=== PATIENT | female | born 1955 | race Caucasian/White ===

== ENCOUNTER 2020-04-23 08:14 | Outpatient (REF) | payer MEDICARE, SELFPAY ==
[2020-04-23 12:11] LABS: Alanine Aminotransferase 15 U/L (0-31); Anion Gap 16 (12-20); Aspartate Amino Transferase 17 U/L (5-31); Blood Urea Nitrogen 12 mg/dL (9-16); Calcium 9.3 mg/dL (8.4-10.2); Carbon Dioxide 28 mmol/L (22-29); Chloride 103 mmol/L (96-108); Cholesterol 233 mg/dL; Estimated Glomerular Filt Rate > 60; Glucose Fasting 92 mg/dL (60-99); HDL Cholesterol 94 mg/dL; LDL Cholesterol Calculated 112 mg/dl; Potassium 4.7 mmol/l (3.3-5.1); Sodium 142 mmol/L (135-145); Triglycerides 136 mg/dL
== END 2020-04-23 08:15 | disposition home or self-care (01) ==
LOC: HO.HMGCLDS 08:14
PROVIDERS: PCP Internal Medicine; Visit Provider Internal Medicine
DX: M85.88 Other specified disorders of bone density and structure, other site (principal); Z00.01 Encounter for general adult medical examination with abnormal findings; Z78.0 Asymptomatic menopausal state; I10 Essential (primary) hypertension
CPT/HCPCS: 80048; 80061; 82306; 84450; 84460

== ENCOUNTER 2021-04-28 08:08 | Outpatient (REF) | payer MEDICARE, SELFPAY ==
[2021-04-28 11:24] LABS: MANUAL DIFF FLAG NO
[2021-04-28 11:47] LABS: Basophils Percent Auto 0.4 % (0-2); Eosinophils Absolute Auto 0.1 X10*3/uL (0.0-0.4); Eosinophils Percent Auto 2.9 % (0-4); Hematocrit 38.3 % (37.0-47.0); Hemoglobin 12.6 g/dl (12.0-16.0); Imm Gran Abs Auto 0.01 X10*3/uL (0.00-0.03); Imm Gran Pct Auto 0.2 % (0.0-0.4); Lymphocytes Absolute Auto 1.7 X10*3/uL (1.2-4.9); Lymphocytes Percent Auto 35.6 % (20-40); Mean Corpuscular HGB Conc 32.9 g/dl (31.0-35.0); Mean Corpuscular Hemoglobin 30.7 pg (27.0-33.0); Mean Corpuscular Volume 93.2 fL (80.0-98.0); Mean Platelet Volume 9.5 fL (9.4-12.3); Monocytes Absolute Auto 0.3 X10*3/uL (0.1-1.2); Monocytes Percent Auto 5.7 % (2-11); Neutrophils Absolute Auto 2.6 x10*3/uL (2.0-8.3); Neutrophils Percent Auto 55.2 % (45-73); Platelet Count 301 X10*3/uL (160-400); Red Blood Count 4.11 X10*6/uL (4.20-5.50); Red Cell Distribution Width 11.8 % (11.0-16.0); White Blood Count 4.8 X10*3/uL (4.8-10.8)
[2021-04-28 12:17] LABS: Vitamin D 25-OH Total 53.8 ng/mL (>30)
[2021-04-28 12:29] LABS: Alanine Aminotransferase 16 U/L (0-31); Anion Gap 13 (12-20); Aspartate Amino Transferase 16 U/L (5-31); Blood Urea Nitrogen 12 mg/dL (9-16); Calcium 9.2 mg/dL (8.4-10.2); Carbon Dioxide 27 mmol/L (22-29); Chloride 105 mmol/L (96-108); Cholesterol 227 mg/dL; Estimated Glomerular Filt Rate > 60; Glucose Fasting 94 mg/dL (60-99); HDL Cholesterol 91 mg/dL; LDL Cholesterol Calculated 110 mg/dl; Potassium 4.1 mmol/L (3.3-5.1); Sodium 141 mmol/L (135-145); Triglycerides 132 mg/dL
== END 2021-04-28 08:09 | disposition home or self-care (01) ==
LOC: HO.HMGCLDS 08:08
PROVIDERS: PCP Internal Medicine; Visit Provider Internal Medicine
DX: Z00.00 Encounter for general adult medical examination without abnormal findings (principal); M85.89 Other specified disorders of bone density and structure, multiple sites; I10 Essential (primary) hypertension; Z78.0 Asymptomatic menopausal state
CPT/HCPCS: 36415; 80048; 80061; 82306; 84450; 84460; 85025

== ENCOUNTER 2022-04-30 08:07 | Outpatient (REF) | payer MEDICARE, SELFPAY ==
[2022-04-30 12:05] LABS: Alanine Aminotransferase 14 U/L (0-31); Anion Gap 12 (12-20); Aspartate Amino Transferase 17 U/L (5-31); Blood Urea Nitrogen 11 mg/dL (9-16); Calcium 9.6 mg/dL (8.4-10.2); Carbon Dioxide 30 mmol/L (22-29); Chloride 106 mmol/L (96-108); Cholesterol 237 mg/dL; Estimated Glomerular Filt Rate > 60; Glucose Fasting 91 mg/dL (60-99); HDL Cholesterol 81 mg/dL; LDL Cholesterol Calculated 129 mg/dl; Potassium 4.3 mmol/L (3.3-5.1); Sodium 144 mmol/L (135-145); Triglycerides 136 mg/dL; Vitamin D 25-OH Total 61.4 ng/mL (>30)
== END 2022-04-30 08:08 | disposition home or self-care (01) ==
LOC: HO.HMGCLDS 08:07
PROVIDERS: PCP Internal Medicine; Visit Provider Internal Medicine
DX: M85.89 Other specified disorders of bone density and structure, multiple sites (principal); J30.9 Allergic rhinitis, unspecified; Z78.0 Asymptomatic menopausal state
CPT/HCPCS: 36415; 80048; 80061; 82306; 84450; 84460

== ENCOUNTER 2023-02-04 10:48 | Outpatient (AMB) | payer MEDICARE, SELFPAY ==
--- NOTE | 2023-02-04 11:01 | A.OFFPC_ITS ---
Vital Signs 02/04/23 11:04 Weight 157 lb BP 120/80 Blood Pressure Location Rt brachial Position Sitting Pulse 84 Pulse Source Pulse Oximeter Pulse Oximetry (%) 98 Oxygen Delivery Method Room Air Intake Visit Reasons: uti Intake Note: Patient here for possible UTI, burning when urinating, lower back ache, slight pain in lower abdomen which has been present for about 1 week. Allergies egg yolk Allergy (Intermediate, Verified 08/15/23 23:47) gi upset Milk Containing Products (Dairy) [Milk Containing Products] Allergy (Intermediate, Verified 08/15/23 23:47) gi upset/bloating codeine Adverse Reaction (Unknown, Verified 08/15/23 23:47) lightheaded Medication List - Last Reconciled 08/15/23 by Debora Garza MD ipratropium bromide 2 sprays intranasal BID-TID PRN 1 week Tobacco use date assessed: 02/04/23 Fall risk assessment: No Falls in past year Last assessed Fall Risk: 02/04/23 HPI uti HPI Details 68-year-old lady here today complaining of intermittent episodes of burning in her vaginal area after urination, denies any accompanying fever, chills, nausea, urinary frequency or urgency, has some slight discomfort in lower back. This has been present now for the last 1 week. [facility] Medical History Osteopenia of multiple sites Lactose intolerance Menopause Recurrent cold sores Atrophic vaginitis Immunization refused Allergic rhinitis Tubular adenoma of colon Surgical History History of tonsillectomy History of colonoscopy Family History Father Pulmonary fibrosis Rheumatoid arthritis Respiratory disease Mother Breast cancer Thyroid disorder Dyslipidemia Sister No problems noted. Son No problems noted. Social History Housing: House Alcohol intake: never Patient Tobacco Use Status: Never used Tobacco e-Cigarette/Vaping Use: Never Used Current occupational status: retired Cognitive needs: No Hearing needs: No Vision needs: Yes Questionnaire Thrive Questionnaire Date Thrive assessed: 04/29/22 TISHA-7 AMB Questionnaire TISHA-7 Date TISHA - 7 assessed: 04/29/22 Source: Developed by Drs. Toñito Alejandro, Genesis Morris, Isai Coffman and colleagues, with an educational fabiola from [employer]. Review of Systems Const Denies chills, Denies fatigue and Denies fever(s) ENT Reports no additional complaints Card Denies chest pain and Denies dyspnea Resp Denies dyspnea GI Denies melena, Denies bloating, Denies hematochezia, Denies change in bowel hab its and Denies heartburn Denies hematuria, Denies difficulty voiding, Denies urinary incontinence, Denies vaginal discharge and Reports vaginal dryness Musc Reports no additional complaints Neuro Reports no additional complaints Endo Denies fatigue Physical exam (Primary Care) Vital Signs: Last Vital Signs Pulse 84 02/04/23 11:04 BP 120/80 02/04/23 11:04 Pulse Ox 98 02/04/23 11:04 Oxygen Delivery Method Room Air 02/04/23 11:04 Tobacco/Smoking Status: Tobacco use Status Tobacco use date assessed 02/04/23 02/04/23 11:06 Patient Tobacco Use Status Never used Tobacco 02/04/23 11:06 e-Cigarette/Vaping Use Never Used 02/04/23 11:06 Thrive Assessment: Date of Thrive Assessment Date Thrive assessed 04/29/22 02/04/23 11:06 Const General: comfortable and no acute distress Nutritional Appearance: average body habitus Orientation/consciousness: patient oriented x3 GI Inspection: Yes normal to inspection Palpation (GI): Soft to palpation, nontender, no guarding and no masses Auscultation: normal bowel sounds Other: Dry vaginal mucosa with scant discharge, no lesions seen General: Yes no CVA tenderness External Female Exam: normal appearance of the urethra Speculum Exam - Vagina: vagina atrophic Back/Spine/Pelvis Back: no CVA tenderness Neuro General: patient oriented x3 Results AMB Urinalysis, Automated UA Leukoctes 0 Jeff/uL Last Edit by ALLIE Gould on 02/04/23 11:12 UA Nitrite Negative Last Edit by ALLIE Gould on 02/04/23 11:12 UA Urobilinogen 0.2 mg/dL Last Edit by ALLIE Gould on 02/04/23 11:12 UA Protein 0 mg/dL Last Edit by ALLIE Gould on 02/04/23 11:12 UA pH 8.0 Last Edit by Dominick Kenney [facility] on 02/04/23 11:12 UA Blood 0 Zack/uL Last Edit by Dominick Kenney [facility] on 02/04/23 11:12 UA Specific Lyons 1.015 Last Edit by Dominick Kenney [facility] on 02/04/23 11:12 UA Ketone Negative Last Edit by Dominick Kenney [facility] on 02/04/23 11:12 UA Bilirubin 0 mg/dL Last Edit by Dominick Kenney [facility] on 02/04/23 11:12 UA Glucose 0 mg/dL Last Edit by Dominick Kenney [facility] on 02/04/23 11:12 Results Reviewed Results Reviewed: Laboratory Last Values Urine pH (Auto) 8.0 02/04/23 11:10 Specific Lyons (Auto) 1.015 02/04/23 11:10 Urine Protein (Auto) 0 mg/dL 02/04/23 11:10 Glucose (UA)(Auto) 0 mg/dL 02/04/23 11:10 Urine Ketones (Auto) Negative 02/04/23 11:10 Urine Blood (Auto) 0 Zack/uL 02/04/23 11:10 Urine Nitrite (Auto) Negative 02/04/23 11:10 Urine Bilirubin (Auto) 0 mg/dL 02/04/23 11:10 Urine Urobilinogen (Auto) 0.2 mg/dL 02/04/23 11:10 Leukocyte Esterase (Auto) 0 Jeff/uL 02/04/23 11:10 Assessment and Plan Assessment & Plan (1) Acute vaginitis: Code(s): N76.0 - Acute vaginitis Plan: Urinalysis came back with unremarkable findings. Prescription sent for estradiol 0.01% cream, to apply to vaginal area 3 times a week for the 1st week and to decrease frequency to just twice a week thereafter. Return to clinic if no improvement of symptoms Orders: Orders 2 AMB Urinalysis Automated 02/04/23 Z13.9 - Encounter for screening, unspecified Medications: New estradiol 0.01%(0.1mg/gram) (Estrace) Apply to a vaginal area 3 times a week for the 1st week and then decrease frequency to twice a week afterwards 1 g vaginal 3XW 42.5 grams 0RF Coding Level of Care Code Est Pt Level 3 (73112) Diagnoses Acute vaginitis N76.0
[2023-02-04 11:04] VITALS: BP 120/80; PULSE 84; O2SAT 98
== END 2023-02-04 12:06 | disposition home or self-care (01) ==
PROVIDERS: PCP Internal Medicine; Visit Provider Internal Medicine
DX: N76.0 Acute vaginitis (principal)
CPT/HCPCS: 81003; 99213

== ENCOUNTER 2023-05-10 10:50 | Outpatient (AMB) | payer MEDICARE, SELFPAY ==
--- NOTE | 2023-05-10 11:50 | A.OFFPC_ITS ---
Vital Signs 05/10/23 11:51 Height 5 ft 6 in Weight 158 lb BMI 25.5 BP 128/82 Blood Pressure Location Rt brachial Position Sitting Pulse 68 Pulse Source Pulse Oximeter Pulse Oximetry (%) 100 Oxygen Delivery Method Room Air Intake Visit Reasons: Annual PE Intake Note: pt is here for her Annual PE pt does not get flu vaccine did not have covid vaccine Allergies egg yolk Allergy (Intermediate, Verified 05/10/23 12:13) gi upset Milk Containing Products (Dairy) [Milk Containing Products] Allergy (Intermediate, Verified 05/10/23 12:13) gi upset/bloating codeine Adverse Reaction (Unknown, Verified 05/10/23 12:13) lightheaded Medication List - Last Reconciled 05/10/23 by Debora Garza MD calcium carbonate-vitamin D3 600 mg-20 mcg (800 unit) (Caltrate with Vitamin D3) 1 tab PO DAILY estradiol 0.01%(0.1mg/gram) (Estrace) 1 g vaginal 3XW glycerin-min oil-polycarbophil (Replens vaginal gel) ea vaginal in-[id number] 333-1.7 mg (Airborne (ascorbate sodium)) tabs PO Tobacco use date assessed: 05/10/23 Fall risk assessment: No Falls in past year Last assessed Fall Risk: 05/10/23 Dental Screening Dental Screen Date: 05/10/23 Did you have a dental visit in the last 12 months?: Yes Did you have a dental problem in the last 6 months where you did not have access to dental care?: No Was dental information given to patient?: Patient has dentist HPI Annual PE HPI Details 67-year-old lady here today for her phys ical exam. She has a a trough vaginitis currently on Estrace, which has been helping. She goes to [facility] for her pelvic and exam and cervical cancer screening as was for screening mammogram and bone density scan screening. She has osteopenia and multiple sites as noted on her bone density done in 2019. No history of fracture.. She does not want to get any vaccines. She is up-to-date with her screening colonoscopy done [place] [address] Mae, due for another repeat check in 2023 due to history of adenomatous polyps on previous colonoscopies done. [facility] Medical History (Updated 05/10/23 @ 12:28 by Debora Garza MD) Osteopenia of multiple sites Lactose intolerance Menopause Recurrent cold sores Atrophic vaginitis Immunization refused Allergic rhinitis Tubular adenoma of colon Surgical History History of tonsillectomy History of colonoscopy Family History Father Pulmonary fibrosis Rheumatoid arthritis Respiratory disease Mother Breast cancer Thyroid disorder Dyslipidemia Sister No problems noted. Son No problems noted. Social History Housing: House Alcohol intake: never Patient Tobacco Use Status: Never used Tobacco e-Cigarette/Vaping Use: Never Used Current occupational status: retired Cognitive needs: No Hearing needs: No Vision needs: Yes Female Reproductive History Menstrual Other: Goes to [facility] for her routine Pap pelvic exam, screening mammogram and bone density scan testing Questionnaire PHQ-9 Over the last 2 weeks, how often have you been bothered by any of the following problems? 1. Little interest or pleasure in doing things: not at all 2. Feeling down, depressed, or hopeless: not at all 3. Trouble falling or staying asleep, or sleeping too much: not at all 4. Feeling tired or having little energy: not at all 5. Poor appetite or overeating: not at all 6. Feeling bad about yourself - or that you are a failure or have let yourself or your family down: not at all 7. Trouble concentrating on things, such as reading the newspaper or watching television: not at all 8. Moving or speaking so slowly that other people could have noticed. Or the opposite - being so fidgety or restless that you have been moving around a lot more than usual: not at all 9. Thoughts that you would be better off or of hurting yourself in some way: not at all Total score: 0 Depression Screening Interpretation: Negative Depression Screening Done: Yes 91162 - PHQ-9 Billing: Yes Source: Developed by Drs. Toñito Alejandro, Genesis Morris, Isai Coffman and colleagues, with an educational fabiola from [employer]. Thrive Questionnaire Date Thrive assessed: 05/10/23 I am a: Patient What is your living situation today?: I have a steady place to live Within the past 12 months, did the food you bought not last and you didn't have the money to get more?: Never true Within the past 12 months, did you worry whether your food would run out before you got money to buy more?: Never true Do you have trouble paying for medicines?: No Do you have trouble getting transportation to medical appointments?: No Do you have trouble paying your heating and electricity bill?: No Do you have trouble taking care of your child, family member or friend?: No Do you have trouble with day-to-day activities such as bathing, preparing meals, shopping, managing finances, etc.?: No Are you currently unemployed and looking for a job?: No Are you interested in more education?: No Please select the resources that you would like help with: None AUDIT C Alcohol Use Questionnaire (AUDIT-C) 1. How often do you have a drink containing alcohol?: Never Total Score: 0 TISHA-7 AMB Questionnaire TISHA-7 Date TISHA - 7 assessed: 05/10/23 Feeling nervous, anxious, or on edge: 0 = Not at all Not being able to stop or control worryin = Not at all Worrying too much about different things: 0 = Not at all Trouble relaxin = Not at all Being so restless that it is hard to sit still: 0 = Not at all Becoming easily annoyed or irritable: 0 = Not at all Feeling afraid as if something awful might happen: 0 = Not at all Total TISHA-7 score (0-4 normal; 5-9 mild; 10-14 moderate; 15-21 severe): 0 Source: Developed by Drs. Toñito Alejandro, Genesis Morris, Isai Coffman and colleagues, with an educational fabiola from [employer]. TISHA-7 Assessment Billing TISHA-7 Assessment Tool: TISHA-7 Assessment 35830 Review of Systems Const Denies body aches, Denies fatigue, Denies fever(s), Denies headache(s) and Denies weakness Eyes Details: Sees [facility] Denies change in vision, Denies eye discharge and Denies itchy eyes ENT Reports Normal hearing present, Denies dizziness, Denies headache(s), Denies nasal congestion, Denies nasal discharge and Denies sore throat Card Denies chest pain, Denies lightheadedness, Denies palpitations and Denies dyspnea Resp Denies chest congestion, Denies cough, Denies dyspnea and Denies wheezing GI Denies abdominal pain, Denies change in bowel habits and Denies heartburn Details: Goes to [facility] for routine exam screening mammogram as well as blood CT scan testing Denies urinary frequency, Denies dysuria and Denies urinary urgency Musc Reports no additional complaints Skin/Breast Denies lesions and Denies rash Neuro Reports Normal hearing present, Denies dizziness, Denies headache(s), Denies Sensory deficit (Neuro) and Denies weakness Psych Reports no additional complaints Endo Denies fatigue, Denies polydipsia, Denies polyuria and Denies palpitations Godwin/Lymph Denies easy bruising Aller/Immun Denies itchy eyes, Denies seasonal rhinorrhea and Denies wheezing Physical exam (Primary Care) Vital Signs: Last Vital Signs Pulse 68 05/10/23 11:51 BP 128/82 05/10/23 11:51 Pulse Ox 100 05/10/23 11:51 Oxygen Delivery Method Room Air 05/10/23 11:51 BMI result Body Mass Index 25.5 Tobacco/Smoking Status: Tobacco use Status Tobacco use date assessed 05/10/23 05/10/23 11:55 Patient Tobacco Use Status Never used Tobacco 05/10/23 11:50 e-Cigarette/Vaping Use Never Used 05/10/23 11:50 Depression Screening Interpretation: Negative Thrive Assessment: Date of Thrive Assessment Date Thrive assessed 04/29/22 05/10/23 11:50 Advance Care Planning discussion: Exists, not on file Date of discussion: 05/10/23 Who was present: Patient Forms completed: Health Care Proxy Time spent: 1-15 minutes, not on file Actual minutes spent: 15 Const General: comfortable and no acute distress Nutritional Appearance: average body habitus Orientation/consciousness: patient oriented x3 HENMT Head: Yes normocephalic Ears: hearing grossly normal bilaterally, external ears normal, TM's normal bilaterally and EAC's normal General nose exam: Normal external nose present Face and sinus: Yes face symmetric Mouth: Normal oral and palatal mucosa present, oropharynx normal and moist mucous membranes Eyes General: appearance normal, both eyes and all related structures Neck Neck: Yes normal visual inspection, Yes full ROM, Yes no lymphadenopathy and Yes supple Thyroid: Thyroid normal Chest Chest palpation & inspection: normal inspection of the chest Breast/axilla palpation: normal palpation of the breasts Resp Effort & Inspection: normal respiratory effort and able to speak in complete sentences Auscultation: clear to auscultation bilaterally Cardio Rate: regular rate Rhythm: regular rhythm Heart sounds: S1 normal heart sound present and S2 normal heart sound present Peripheral pulses: Peripheral pulses 2+ throughout GI Inspection: Yes normal to inspection Palpation (GI): Soft to palpation, nontender, no guarding and no masses Auscultation: normal bowel sounds General: Yes no CVA tenderness Back/Spine/Pelvis Back: no CVA tenderness and No back tenderness Skin General skin exam: no rashes or lesions noted Neuro General: patient oriented x3, gait normal, tone normal, moves all extremities, Normal light touch and pain sensation, no focal motor deficits and CN's II-XI intact bilaterally Cranial nerves: Yes Normal hearing present Gait exam (Neuro): Normal gait present Sensory Exam: No Sensory deficit (Neuro) Extrem General: Yes normal to inspection, Yes full ROM, Yes no joint enlargement, Yes no clubbing, cyanosis or edema and Yes normal gait Psych Appearance: grossly normal and well kempt Mental Status: mental status grossly normal Speech and movement: Normal speech and movement present Affect: normal affect Attitude: cooperative Thought process: Normal thought process present Thought content: Normal thought content present Assessment and Plan Assessment & Plan (1) Annual visit for general adult medical examination with abnormal findings: Code(s): Z00.01 - Encounter for general adult medical examination with abnormal findings Plan: Will check appropriate labs. Continue regular dental visit every 6 months and regular eye exams, at least every 2 years., goes to [facility] Take adequate calcium in diet and vitamin-D 3 at 2000 IU per cap once a day, in addition to weight-bearing exercises to help maintain good muscle tone and weight control. Instructed to do self-breast exam, and continue to get yearly mammogram, requested copy to be sent here from [facility], to include results of bone density scan and mammogram and Pap smear. Patient does not want to get any vaccinations. She is up-to-date with her screening colonoscopy due again in [address] Tu (2) Osteopenia of multiple sites: Comment: Seen on last bone density scan done 2019 at [facility] Code(s): M85.89 - Other specified disorders of bone density and structure, multiple sites Plan: Stressed importance of doing regular weight-bearing exercise, taking adequate calcium from dietary sources and taking vitamin-D 3 at least 2000 units daily. Patient states that she is scheduled to get a repeat bone density scan done at [facility], requested copy of findings (3) Atrophic vaginitis: Comment: Previously on Estrace given by her OBGYN at [place] but has been out of it now for the last several years Code(s): N95.2 - Postmenopausal atrophic vaginitis Plan: Currently on Estrace cream uses 2 to 3 times a week as needed Orders: Orders Aspartate Amino Transferase Today J30.9 - Allergic rhinitis, unspecified, M85.89 - Other specified disorders of bone density and structure, multiple sites, Z78.0 - Asymptomatic menopausal state Lipid Panel Today J30.9 - Allergic rhinitis, unspecified, M85.89 - Other specified disorders of bone density and structure, multiple sites, Z78.0 - Asymptomatic menopausal state Vitamin D 25-OH Total Today J30.9 - Allergic rhinitis, unspecified, M85.89 - Other specified disorders of bone density and structure, multiple sites, Z78.0 - Asymptomatic menopausal state Alanine Aminotransferase Today J30.9 - Allergic rhinitis, unspecified, M85.89 - Other specified disorders of bone density and structure, multiple sites, Z78.0 - Asymptomatic menopausal state Basic Metabolic Panel Fasting Today J30.9 - Allergic rhinitis, unspecified, M85.89 - Other specified disorders of bone density and structure, multiple sites, Z78.0 - Asymptomatic menopausal state Review Patient declined Pneumococcal Vaccine: 05/10/23 Flu Vaccine not done: patient reason (Decline) Declined TDap/Td: 05/10/23 Coding Level of Care Code Est Pt Prev Care >65y(56920) Diagnoses Annual visit for general adult medical examination with abnormal findings Z00.01 Osteopenia of multiple sites M85.89 Atrophic vaginitis N95.2 Additional Codes TISHA-7 Assessment Billing - TISHA-7 Assessment Tool: TISHA-7 Assessment 20460 ([id number]) Vital Signs *Quality* - Advance Care Planning discussion: Exists, not on file ( [id number]) Vital Signs *Quality* - Time spent: 1-15 minutes, not on file ([id number])
[2023-05-10 11:51] VITALS: BP 128/82; PULSE 68; O2SAT 100; BMI 25.5
== END 2023-05-10 12:30 | disposition home or self-care (01) ==
PROVIDERS: Visit Provider Internal Medicine
DX: Z00.00 Encounter for general adult medical examination without abnormal findings (principal); M85.89 Other specified disorders of bone density and structure, multiple sites; N95.2 Postmenopausal atrophic vaginitis
CPT/HCPCS: 1124F; 99397

== ENCOUNTER 2023-05-11 08:18 | Outpatient (REF) | payer MEDICARE, SELFPAY ==
[2023-05-11 11:50] LABS: Alanine Aminotransferase 15 U/L (0-31); Anion Gap 10 (12-20); Aspartate Amino Transferase 16 U/L (5-31); Blood Urea Nitrogen 12 mg/dL (9-16); Calcium 9.6 mg/dL (8.4-10.2); Carbon Dioxide 31 mmol/L (22-29); Chloride 104 mmol/L (96-108); Cholesterol 221 mg/dL (<200); Estimated Glomerular Filt Rate > 60; Glucose Fasting 94 mg/dL (60-99); HDL Cholesterol 90 mg/dL (>40); LDL Cholesterol Calculated 93 mg/dL (<100); Potassium 3.8 mmol/L (3.3-5.1); Sodium 141 mmol/L (135-145); Triglycerides 192 mg/dL (<150)
[2023-05-11 12:05] LABS: Vitamin D 25-OH Total 70.3 ng/mL (>30)
== END 2023-05-11 08:19 | disposition home or self-care (01) ==
LOC: HO.HMGCLDS 08:18
PROVIDERS: PCP Internal Medicine; Visit Provider Internal Medicine
DX: M85.89 Other specified disorders of bone density and structure, multiple sites (principal); J30.9 Allergic rhinitis, unspecified; Z78.0 Asymptomatic menopausal state
CPT/HCPCS: 36415; 80048; 80061; 82306; 84450; 84460

== ENCOUNTER 2023-07-28 09:33 | Outpatient (AMB) | payer MEDICARE, SELFPAY ==
--- NOTE | 2023-07-28 09:37 | MHC.OFFWIV ---
Intake Vital Signs 07/28/23 09:42 Height 5 ft 6 in Weight 160 lb BMI 25.8 BP 122/64 Blood Pressure Location Rt brachial Position Sitting Pulse 98 Pulse Source Pulse Oximeter Temp 97.5 F Temp Source Oral Pulse Oximetry (%) 100 Oxygen Delivery Method Room Air Intake Visit Reasons: EST/ear infection (lobby masked) Intake Note: Pt is here c/o right ear discomfort for one week and a half. Patient Tobacco Use Status: Never used Tobacco Allergies egg yolk Allergy (Intermediate, Verified 07/28/23 09:37) gi upset Milk Containing Products (Dairy) [Milk Containing Products] Allergy (Intermediate, Verified 07/28/23 09:37) gi upset/bloating codeine Adverse Reaction (Unknown, Verified 07/28/23 09:37) lightheaded Do you need a note to return to daycare/school/sports/work: No HPI HPI Comments History of Present Illness Details Patient is a 68yo F who presents to the office with possible R ear infection L side fullness 1 week ago which resolved Sates now fullness R ear, pain inside She said feels liquid in ear No drainage from the ear No fever or chills pain is 8/10 Tried decongestant with some relief She has some congestion, sinus pressure and post nasal drip Denies CP, SOB Minimal cough with phlegm PFSH Medical History Osteopenia of multiple sites Lactose intolerance Menopause Recurrent cold sores Atrophic vaginitis Immunization refused Allergic rhinitis Tubular adenoma of colon Surgical History History of tonsillectomy History of colonoscopy Family History Father Pulmonary fibrosis Rheumatoid arthritis Respiratory disease Mother Breast cancer Thyroid disorder Dyslipidemia Sister No problems noted. Son No problems noted. Social History Housing: House Alcohol intake: never Patient Tobacco Use Status: Never used Tobacco e-Cigarette/Vaping Use: Never Used Current occupational status: retired Cognitive needs: No Hearing needs: No Vision needs: Yes Review of Systems Const Denies body aches, Denies chills, Denies fatigue, Denies fever(s) and Denies headache(s) Eyes Denies blurry vision ENT Denies ear discharge, Reports otalgia, Denies facial pain, Denies headache(s), Reports nasal congestion, Reports nasal discharge, Reports sore throat and Denies throat swelling Card Denies chest pain and Denies dyspnea Resp Reports cough, Denies pain with cough and Denies dyspnea GI Denies abdominal pain Neuro Denies headache(s) Endo Denies fatigue Aller/Immun Denies throat swelling Physical Exam Vital Signs: Last Vital Signs Temp 97.5 F 07/28/23 09:42 Pulse 98 07/28/23 09:42 BP 122/64 07/28/23 09:42 Pulse Ox 100 07/28/23 09:42 Oxygen Delivery Method Room Air 07/28/23 09:42 BMI result Body Mass Index 25.8 General: Non-toxic, NAD. Speaking full sentences. Skin: Warm dry throughout. No R temporal swelling or erythema. No R sided scalp rash or vesicles. No R mastoid erythema Eye: EOMI, PERRL HENT: Airway patent. Uvula midline. No pharyngeal erythema or edema. No CIGAR HEAD PEGGER. Bilateral canals clear.+ fluid behind R TM. TM non-erythematous, non-bulging. No TM perforation or hemotympanum noted. No auricle or mastoid tenderness bilaterally. Lymph: No lymphadenopathy Respiratory: CTA bilaterally. No wheezes, rales or rhonchi Cardiac: RRR. No murmur MSK: Full ROM extremities. Neurology: A/O. No aphasia or facial droop. Gait without abnormality Psych: Good mood and affect Assessment & Plan Assessment & Plan (1) Otalgia of right ear: Code(s): H92.01 - Otalgia, right ear Plan: Nasal steroid as prescribed Tylenol prn discomfort Discussed new/worsening symptoms call Pt expressed verbal understanding and had no additional questions at this time Medications: New ipratropium bromide administer into each nostril 2 sprays intranasal BID-TID 1 week PRN 30 mL 0RF allergy symptoms Coding Level of Care Code Est Pt Level 3 (39089) Diagnoses Otalgia of right ear H92.01
[2023-07-28 09:42] VITALS: BP 122/64; PULSE 98; TEMP 36.4; O2SAT 100; BMI 25.8
== END 2023-07-28 10:11 | disposition home or self-care (01) ==
PROVIDERS: PCP Internal Medicine; Visit Provider Physician Assistant
DX: H92.01 Otalgia, right ear (principal)
CPT/HCPCS: 99213

== ENCOUNTER 2023-12-20 09:16 | Outpatient (AMB) | payer MEDICARE, SELFPAY ==
[2023-12-20 09:47] VITALS: BP 120/78; PULSE 90; TEMP 36.6; O2SAT 97; BMI 25.8
--- NOTE | 2023-12-20 09:47 | AM.OFFWIN_ITS ---
Intake Vital Signs 3 12/20/23 09:47 Height 5 ft 6 in Weight 72.631 kg BMI 25.8 BP 120/78 Blood Pressure Location Rt brachial Position Sitting Pulse 90 Pulse Source Pulse Oximeter Temp 97.9 F Temp Source Oral Pulse Oximetry (%) 97 Oxygen Delivery Method Room Air Intake Visit Reasons: EP rash on back/?shingles Intake Note: pt is here for rash on back, possible shingles Patient Tobacco Use Status: Never used Tobacco Allergies egg yolk Allergy (Intermediate, Verified 12/20/23 09:49) gi upset Milk Containing Products (Dairy) [Milk Containing Products] Allergy (Intermediate, Verified 12/20/23 09:49) gi upset/bloating codeine Adverse Reaction (Unknown, Verified 12/20/23 09:49) lightheaded Do you need a note to return to daycare/school/sports/work: No HPI EP rash on back/?shingles 2 HPI0 Details Patient presents with burning rash on right posterior trunk that began 1 week ago. She notes pain and itching in the area and then developed 2 areas of rash that are now improving. She has been applying hydrocortisone cream for the itch. She has experiencing no other prodromal type symptoms. She denies other rash on other areas of the body or any plant contact that may have caused dermatitis. She did have chickenpox as a child. FOR[facility]LY [facility] Medical History Osteopenia of multiple sites Lactose intolerance Menopause Recurrent cold sores Atrophic vaginitis Immunization refused Allergic rhinitis Tubular adenoma of colon Surgical History History of tonsillectomy History of colonoscopy Family History Father Pulmonary fibrosis Rheumatoid arthritis Respiratory disease Mother Breast cancer Thyroid disorder Dyslipidemia Sister No problems noted. Son No problems noted. Social History Housing: House Alcohol intake: never Patient Tobacco Use Status: Never used Tobacco e-Cigarette/Vaping Use: Never Used Current occupational status: retired Cognitive needs: No Hearing needs: No Vision needs: Yes Review of Systems Const Reports as per HPI and Reports no additional complaints Card Reports as per HPI and Reports no additional complaints Resp Reports as per HPI and Reports no additional complaints Musc Reports no additional complaints and Reports as per HPI Skin/Breast Denies lesions Neuro Reports no additional complaints and Reports as per HPI Physical Exam Vital Signs: Last Vital Signs Temp 97.9 F 12/20/23 09:47 Pulse 90 12/20/23 09:47 BP 120/78 12/20/23 09:47 Pulse Ox 97 12/20/23 09:47 Oxygen Delivery Method Room Air 12/20/23 09:47 BMI result Body Mass Index 25.8 Const General: cooperative, comfortable and no acute distress Orientation/consciousness: patient oriented x3 Resp Effort & Inspection: normal respiratory effort Auscultation: clear to auscultation bilaterally Cardio Rate: regular rate Rhythm: regular rhythm Heart sounds: S1 normal heart sound present and S2 normal heart sound present Skin General skin exam: elasticity normal and turgor normal Rashes: rashes noted right posterior truncal Full body images: 2 1. Area of dried vesicles on an erythematous base measuring 5 cm x 5 cm. 2. Area of dried vesicles on erythematous base measuring 5 cm x 5 cm 3. Left-side of spine area of red papular rash similar in size but without vesicles or dried over. Neuro General: patient oriented x3 Assessment & Plan Assessment & Plan (1) Dermatitis: Code(s): L30.9 - Dermatitis, unspecified Plan: Right-sided rashes are consistent with shingles. Since they have been present for a week and are now healing no treatment required. Patient can continue symptomatic treatment with hydrocortisone or OTC topical lidocaine as needed. The rash to the left of her spine somewhat atypical for shingles however explained to patient bilateral shingles is possible. She has not had a shingles vaccine however she is otherwise quite healthy without immunocompromised. Advised to avoid contact with immunocompromised and people until rash is fully healed. She does have a annual dermatology visit in the coming weeks. I have advised her to have them look at this as if further rash develops it is unlikely to be shingles and she may need more of a workup and evaluation by Dermatology. Return to clinic in the meantime if she has any concerns. Coding Level of Care Code Est Pt Level 3 (00563) Diagnoses Dermatitis L30.9
== END 2023-12-20 10:22 | disposition home or self-care (01) ==
PROVIDERS: PCP Internal Medicine; Visit Provider Physician Assistant
DX: L30.9 Dermatitis, unspecified (principal)
CPT/HCPCS: 99213

== ENCOUNTER 2024-05-29 10:48 | Outpatient (AMB) | payer MEDICARE, SELFPAY ==
[2024-05-29 11:55] VITALS: BP 132/74; PULSE 75; O2SAT 99; BMI 26.0
--- NOTE | 2024-05-29 11:55 | A.OFFPC_ITS ---
Vital Signs 05/29/24 11:55 Height 5 ft 6 in Weight 161 lb 4 oz BMI 26.0 BP 132/74 Blood Pressure Location Rt brachial Position Sitting Pulse 75 Pulse Source Pulse Oximeter Pulse Oximetry (%) 99 Oxygen Delivery Method Room Air Intake Visit Reasons: Annual PE Intake Note: Pt is here today for her Annual Physical. Last mammogram 05/18/23 Last colonoscopy 12/14/18 Haven't had a Bone Density Allergies egg yolk Allergy (Intermediate, Verified 05/29/24 12:34) gi upset Milk Containing Products (Dairy) [Milk Containing Products] Allergy (I ntermediate, Verified 05/29/24 12:34) gi upset/bloating codeine Adverse Reaction (Unknown, Verified 05/29/24 12:34) lightheaded Medication List - Last Reconciled 05/29/24 by Debora Garza MD No Known Home Meds Tobacco use date assessed: 05/29/24 Fall risk assessment: No Falls in past year Last assessed Fall Risk: 05/29/24 Dental Screening Dental Screen Date: 05/29/24 Did you have a dental visit in the last 12 months?: No Did you have a dental problem in the last 6 months where you did not have access to dental care?: No Was dental information given to patient?: Patient has dentist HPI Annual PE HPI Details - The patient is a 68 year old female pr esenting for an annual physical examination. - She has Osteopenia: Diagnosed in 2019, with bone thinning noted in the hip and lower back, more pronounced in the left hip. No history of fractures. Last bone density scan was in 2019. The patient plans to schedule a new bone density test. - Pre-cancerous tubular adenoma: Previou s colonoscopy in 2018 indicated a pre- cancerous lesion, with a recommendation for a repeat in 5 years. The patient is hesitant due to caregiving responsibilities for her with Parkinson's. Would like to get procedure postponed until next year - Hypertriglyceridemia: Triglycerides in creased from 136 mg/dL in 2020 to 172 mg/dL in the past year. The patient is aware of dietary influences. - Essential Hypertension: Blood pressure readings typically in the 120s. No changes in medication reported. -last mammogram was on 05/18/23 [facility] Medical History (Updated 05/29/24 @ 12:46 by Debora Garza MD) Hx of adenomatous polyp of colon Hypertriglyceridemia Osteopenia of multiple sites Lactose intolerance Menopause Recurrent cold sores Atrophic vaginitis Immunization refused Allergic rhinitis Tubular adenoma of colon Surgical History History of tonsillectomy History of colonoscopy Family History Father Pulmonary fibrosis Rheumatoid arthritis Respiratory disease Mother Breast cancer Thyroid disorder Dyslipidemia Sister No problems noted. Son No problems noted. Social History Housing: House Alcohol intake: never Patient Tobacco Use Status: Never used Tobacco e-Cigarette/Vaping Use: Never Used service: No Current occupational status: retired Cognitive needs: No Hearing needs: No Vision needs: Yes Questionnaire PHQ-9 Over the last 2 weeks, how often have you been bothered by any of the following problems? 1. Little interest or pleasure in doing things: not at all 2. Feeling down, depressed, or hopeless: not at all 3. Trouble falling or staying asleep, or sleeping too much: not at all 4. Feeling tired or having little energy: not at all 5. Poor appetite or overeating: not at all 6. Feeling bad about yourself - or that you are a failure or have let yourself or your family down: not at all 7. Trouble concentrating on things, such as reading the newspaper or watching television: not at all 8. Moving or speaking so slowly that other people could have noticed. Or the opposite - being so fidgety or restless that you have been moving around a lot more than usual: not at all 9. Thoughts that you would be better off or of hurting yourself in some way: not at all Total score: 0 Depression Screening Interpretation: Negative Depression Screening Done: Yes 40030 - PHQ-9 Billing: Yes Source: Developed by Drs. Toñito Alejandro, Genesis Morris, Isai Coffman and colleagues, with an educational fabiola from [employer]. Thrive Questionnaire Date Thrive assessed: 05/29/24 I am a: Patient What is your living situation today?: I have a steady place to live Within the past 12 months, did the food you bought not last and you didn't have the money to get more?: Never true Within the past 12 months, did you worry whether your food would run out before you got money to buy more?: Never true Do you have trouble paying for medicines?: No Do you have trouble getting transportation to medical appointments?: No Do you have trouble paying your heating and electricity bill?: No Do you have trouble taking care of your child, family member or friend?: No Do you have trouble with day-to-day activities such as bathing, preparing meals, shopping, managing finances, etc.?: No Are you currently unemployed and looking for a job?: No Are you interested in more education?: No Please select the resources that you would like help with: None Currently or been in a relationship where the following occur: No concerns reported THRIVE Score: 0 AUDIT C Alcohol Use Questionnaire (AUDIT-C) 1. How often do you have a drink containing alcohol?: Never 3. How often do you have six or more drinks on one occasion?: Never Total Score: 0 Score Reviewed/Action Taken: Yes TISHA-7 AMB Questionnaire TISHA-7 Date TISHA - 7 assessed: 05/29/24 Feeling nervous, anxious, or on edge: 0 = Not at all Not being able to stop or control worryin = Not at all Worrying too much about different things: 0 = Not at all Trouble relaxin = Not at all Being so restless that it is hard to sit still: 0 = Not at all Becoming easily annoyed or irritable: 0 = Not at all Feeling afraid as if something awful might happen: 0 = Not at all Total TISHA-7 score (0-4 normal; 5-9 mild; 10-14 moderate; 15-21 severe): 0 Source: Developed by Drs. Toñito Alejandro, Genesis Morris, Isai Coffman and colleagues, with an educational fabiola from [employer]. TISHA-7 Assessment Billing TISHA-7 Assessment Tool: TISHA-7 Assessment 63095 Review of Systems Const Reports as per HPI, Reports no additional complaints, Denies fatigue and Denies headache(s) Eyes Details: Sees [place] [facility] Denies change in vision, Denies eye discharge and Denies itchy eyes ENT Reports Normal hearing present, Denies dizziness, Denies headache(s), Denies nasal congestion, Denies nasal discharge and Denies sore throat Card Reports as per HPI, Reports no additional complaints and Denies palpitations Resp Reports as per HPI, Reports no additional complaints and Denies wheezing GI Denies abdominal pain, Denies change in bowel habits and Denies heartburn Details: Goes [facility] for routine exam screening mammogram as well as Dexa scan testing Denies urinary frequency, Denies dysuria and Denies urinary urgency Musc Reports no additional complaints and Reports as per HPI Skin/Breast Denies lesions Neuro Reports no additional complaints, Reports as per HPI, Reports Normal hearing present, Denies dizziness, Denies headache(s) and Denies Sensory deficit (Neuro) Psych Reports no additional complaints Endo Denies fatigue, Denies polydipsia, Denies polyuria and Denies palpitations Godwin/Lymph Denies easy bruising Aller/Immun Denies itchy eyes, Denies seasonal rhinorrhea and Denies wheezing Physical exam (Primary Care) Vital Signs: Last Vital Signs Pulse 75 05/29/24 11:55 BP 132/74 05/29/24 11:55 Pulse Ox 99 05/29/24 11:55 Oxygen Delivery Method Room Air 05/29/24 11:55 BMI result Body Mass Index 26.0 Tobacco/Smoking Status: Tobacco use Status Tobacco use date assessed 05/29/24 05/29/24 11:59 Patient Tobacco Use Status Never used Tobacco 05/29/24 11:57 e-Cigarette/Vaping Use Never Used 05/29/24 11:57 PHQ-9: PHQ-9 Score PHQ-9: Total score 0 05/29/24 12:52 Depression Screening Interpretation: Negative Thrive Assessment: Date of Thrive Assessment Date Thrive assessed 05/29/24 05/29/24 11:59 Currently or been in a relationship where the following occur: No concerns reported Const General: comfortable and no acute distress Nutritional Appearance: average body habitus Orientation/consciousness: patient oriented x3 HENMT Head: Yes normocephalic Ears: hearing grossly normal bilaterally, external ears normal, TM's normal bilaterally and EAC's normal General nose exam: Normal external nose present Face and sinus: Yes face symmetric Mouth: Normal oral and palatal mucosa present, oropharynx normal and moist mucous membranes Eyes General: appearance normal, both eyes and all related structures Neck Neck: Yes normal visual inspection, Yes full ROM, Yes no lymphadenopathy and Yes supple Thyroid: Thyroid normal Chest Chest palpation & inspection: normal inspection of the chest Breast/axilla palpation: normal palpation of the breasts Resp Effort & Inspection: normal respiratory effort and able to speak in complete sentences Auscultation: clear to auscultation bilaterally Cardio Rate: regular rate Rhythm: regular rhythm Heart sounds: S1 normal heart sound present and S2 normal heart sound present Peripheral pulses: Peripheral pulses 2+ throughout GI Inspection: Yes normal to inspection Palpation (GI): Soft to palpation, nontender, no guarding and no masses Auscultation: normal bowel sounds General: Yes no CVA tenderness Back/Spine/Pelvis Back: no CVA tenderness and No back tenderness Skin General skin exam: no rashes or lesions noted Neuro General: patient oriented x3, gait normal, tone normal, moves all extremities, Normal light touch and pain sensation, no focal motor deficits and CN's II-XI intact bilaterally Cranial nerves: Yes Normal hearing present Gait exam (Neuro): Normal gait present Sensory Exam: No Sensory deficit (Neuro) Extrem General: Yes normal to inspection, Yes full ROM, Yes no joint enlargement, Yes no clubbing, cyanosis or edema and Yes normal gait Psych Appearance: grossly normal and well kempt Mental Status: mental status grossly normal Speech and movement: Normal speech and movement present Affect: normal affect Attitude: cooperative Thought process: Normal thought process present Thought content: Normal thought content present Coding Level of Care Code Est Pt Prev Care >65y(08642) Diagnoses Annual visit for general adult medical examination with abnormal findings Osteopenia of multiple sites M85.89 Additional Codes TISHA-7 Assessment Billing - TISHA-7 Assessment Tool: TISHA-7 Assessment 28863 ([id number]) PHQ-9 - 38133 - PHQ-9 Billing: Yes ([id number]) Assessment & Plan Assessment & Plan (1) Annual visit for general adult medical examination with abnormal findings: Code(s): Z00. - Encounter for general adult medical examination with abnormal findings (2) Osteopenia of multiple sites: Comment: Seen on last bone density scan done 2019 at [place] Code(s): M85.89 - Other specified disorders of bone density and structure, multiple sites Category: Medical Plan -advised to call her OBGYN, to to schedule a bone density test together with screening mammogram done at [facility] - Plan to schedule a colonoscopy as soon as possible, but patient would like to wait until next year for procedure to be done. - Focus on healthy lifestyle choices to manage triglyceride levels. - Continue monitoring blood pressure regularly. - Consider scheduling vaccinations as discussed. - Maintain regular eye and dental check-ups. - Follow up for annual blood work and any other screenings as necessary. Patient was informed and verbally consented to the use of an ambient scribe for clinic note documentation during this visit. Orders: Orders Basic Metabolic Panel Fasting 06/01/24 E78.1 - Pure hyperglyceridemia, M85.89 - Other specified disorders of bone density and structure, multiple sites, Z00.01 - Encounter for general adult medical examination with abnormal findings, Z13.1 - Encounter for screening for diabetes mellitus, Z53.20 - Procedure and treatment not carried out because of patient's decision for unspecified reasons, Z78.0 - Asymptomatic menopausal state, Z86.0101 - Personal history of adenomatous and serrated colon polyps Aspartate Amino Transferase 06/01/24 E78.1 - Pure hyperglyceridemia, M85.89 - Other specified disorders of bone density and structure, multiple sites, Z00.01 - Encounter for general adult medical examination with abnormal findings, Z13.1 - Encounter for screening for diabetes mellitus, Z53.20 - Procedure and treatment not carried out because of patient's decision for unspecified reasons, Z78.0 - Asymptomatic menopausal state, Z86.0101 - Personal history of adenomatous and serrated colon polyps Vitamin D 25-OH Total 06/01/24 E78.1 - Pure hyperglyceridemia, M85.89 - Other specified disorders of bone density and structure, multiple sites, Z00.01 - Encounter for general adult medical examination with abnormal findings, Z13.1 - Encounter for screening for diabetes mellitus, Z53.20 - Procedure and treatment not carried out because of patient's decision for unspecified reasons, Z78.0 - Asymptomatic menopausal state, Z86.0101 - Personal history of adenomatous and serrated colon polyps Lipid Panel 06/01/24 E78.1 - Pure hyperglyceridemia, M85.89 - Other specified disorders of bone density and structure, multiple sites, Z00.01 - Encounter for general adult medical examination with abnormal findings, Z13.1 - Encounter for screening for diabetes mellitus, Z53.20 - Procedure and treatment not carried out because of patient's decision for unspecified reasons, Z78.0 - Asymptomatic menopausal state, Z86.0101 - Personal history of adenomatous and serrated colon polyps Complete Blood Count Auto Diff 06/01/24 E78.1 - Pure hyperglyceridemia, M85.89 - Other specified disorders of bone density and structure, multiple sites, Z00.01 - Encounter for general adult medical examination with abnormal findings, Z13.1 - Encounter for screening for diabetes mellitus, Z53.20 - Procedure and treatment not carried out because of patient's decision for unspecified reasons, Z78.0 - Asymptomatic menopausal state, Z86.0101 - Personal history of adenomatous and serrated colon polyps Alanine Aminotransferase 06/01/24 E78.1 - Pure hyperglyceridemia, M85.89 - Other specified disorders of bone density and structure, multiple sites, Z00.01 - Encounter for general adult medical examination with abnormal findings, Z13.1 - Encounter for screening for diabetes mellitus, Z53.20 - Procedure and treatment not carried out because of patient's decision for unspecified reasons, Z78.0 - Asymptomatic menopausal state, Z86.0101 - Personal history of adenomatous and serrated colon polyps
== END 2024-05-29 12:59 | disposition home or self-care (01) ==
PROVIDERS: PCP Internal Medicine; Visit Provider Internal Medicine
DX: Z00.01 Encounter for general adult medical examination with abnormal findings (principal); M85.89 Other specified disorders of bone density and structure, multiple sites

== ENCOUNTER → 2024-05-29 10:48 | Outpatient (BNVA) | payer MEDICARE, SELFPAY | PROVIDERS: PCP Internal Medicine; Visit Provider Internal Medicine | DX: Z00.01 Encounter for general adult medical examination with abnormal findings (principal); M85.89 Other specified disorders of bone density and structure, multiple sites | CPT/HCPCS: 96127; 99397 ==

== ENCOUNTER 2024-06-01 08:14 | Outpatient (REF) | payer MEDICARE, SELFPAY ==
[2024-06-01 09:50] LABS: MANUAL DIFF FLAG NO
[2024-06-01 10:04] LABS: Basophils Percent Auto 0.4 % (0-2); Eosinophils Absolute Auto 0.1 X10*3/uL (0.0-0.4); Eosinophils Percent Auto 2.1 % (0-4); Hematocrit 37.6 % (37.0-47.0); Hemoglobin 12.6 g/dl (12.0-16.0); Imm Gran Abs Auto 0.02 X10*3/uL (0.00-0.03); Imm Gran Pct Auto 0.4 % (0.0-0.4); Lymphocytes Absolute Auto 1.6 X10*3/uL (1.2-4.9); Lymphocytes Percent Auto 28.6 % (20-40); Mean Corpuscular HGB Conc 33.5 g/dl (31.0-35.0); Mean Corpuscular Hemoglobin 30.6 pg (27.0-33.0); Mean Corpuscular Volume 91.3 fL (80.0-98.0); Mean Platelet Volume 9.2 fL (9.4-12.3); Monocytes Absolute Auto 0.3 X10*3/uL (0.1-1.2); Monocytes Percent Auto 5.5 % (2-11); Neutrophils Absolute Auto 3.5 x10*3/uL (2.0-8.3); Platelet Count 323 X10*3/uL (160-400); Red Blood Count 4.12 X10*6/uL (4.20-5.50); Red Cell Distribution Width 11.8 % (11.0-16.0); White Blood Count 5.6 X10*3/uL (4.8-10.8)
[2024-06-01 11:16] LABS: Alanine Aminotransferase 16 U/L (0-31); Anion Gap 13 (12-20); Aspartate Amino Transferase 19 U/L (5-31); Blood Urea Nitrogen 14 mg/dL (9-16); Carbon Dioxide 29 mmol/L (22-29); Chloride 105 mmol/L (96-108); Cholesterol 217 mg/dL (<200); Estimated Glomerular Filt Rate > 60; Glucose Fasting 94 mg/dL (60-99); HDL Cholesterol 70 mg/dL (>40); LDL Cholesterol Calculated 105 mg/dL (<100); Potassium 3.7 mmol/L (3.3-5.1); Sodium 143 mmol/L (135-145); Triglycerides 214 mg/dL (<150)
[2024-06-01 11:33] LABS: Vitamin D 25-OH Total 74.3 ng/mL (>30)
== END 2024-06-01 08:15 | disposition home or self-care (01) ==
LOC: HO.HMGCLDS 08:14
PROVIDERS: PCP Internal Medicine; Visit Provider Internal Medicine
DX: M85.89 Other specified disorders of bone density and structure, multiple sites (principal); Z78.0 Asymptomatic menopausal state; Z00.01 Encounter for general adult medical examination with abnormal findings; Z53.20 Procedure and treatment not carried out because of patient's decision for unspecified reasons; E78.1 Pure hyperglyceridemia; Z13.1 Encounter for screening for diabetes mellitus; Z86.0101 Personal history of adenomatous and serrated colon polyps
CPT/HCPCS: 36415; 80048; 80061; 82306; 84450; 84460; 85025